=== PATIENT | female | born 1955 | race Hispanic/Latino ===

== ENCOUNTER 2017-08-23 10:40 | Day surgery (SDC) | payer BC ==
[~2017-08-23] VITALS: Ht 162.6 cm; Wt 102.1 kg
[~2017-08-23 10:40] MED LIST: ANAPROX DS550 MG OR; FLEXERIL10 MG OR; HYDROCO/APAP1 TA9 OR; HYZAAR1 TA1 PO; LOVENOX 4040 MG/0.4 SC; NO HOME MEDS; ULTRAM50 MG OR
[2017-08-23 14:59] VITALS: BP 123/88
== END 2017-08-23 15:10 | disposition home or self-care (01) | DRG 392 ==
LOC: ENDO 10:40
PROVIDERS: ATTEND Internal Medicine Gastroenterology
PROC: 0DBK8ZX Excision of Ascending Colon, Via Natural or Artificial Opening Endoscopic, Diagnostic (ICD-10-PCS; principal; 2017-08-23)
DX: R19.5 Other fecal abnormalities (principal); K64.4 Residual hemorrhoidal skin tags; K63.5 Polyp of colon; K57.30 Diverticulosis of large intestine without perforation or abscess without bleeding; K64.8 Other hemorrhoids; I10 Essential (primary) hypertension

== ENCOUNTER 2017-10-18 06:06 | Day surgery (SDC) | payer BC ==
[~2017-10-18] VITALS: Ht 162.6 cm; Wt 102.1 kg
[2017-10-18 08:40] VITALS: BP 113/66
== END 2017-10-18 08:58 | disposition home or self-care (01) | DRG 379 ==
LOC: ENDO 06:06
PROVIDERS: ATTEND Internal Medicine Gastroenterology
PROC: 0DB48ZX Excision of Esophagogastric Junction, Via Natural or Artificial Opening Endoscopic, Diagnostic (ICD-10-PCS; principal; 2017-10-18)
PROC: 0DB78ZX Excision of Stomach, Pylorus, Via Natural or Artificial Opening Endoscopic, Diagnostic (ICD-10-PCS; 2017-10-18)
DX: K29.51 Unspecified chronic gastritis with bleeding (principal); B18.2 Chronic viral hepatitis C; K44.9 Diaphragmatic hernia without obstruction or gangrene; K20.9 Esophagitis, unspecified; I10 Essential (primary) hypertension; R94.5 Abnormal results of liver function studies; K57.90 Diverticulosis of intestine, part unspecified, without perforation or abscess without bleeding; Z86.010 Personal history of colon polyps

== ENCOUNTER 2019-01-10 10:31 | Emergency (ER) | payer BC ==
[~2019-01-10] VITALS: Ht 162.6 cm; Wt 99.0 kg
[2019-01-10 12:36] LABS: URINE BILIRUBIN - DIPSTICK NEGATIVE (NEGATIVE); URINE BLOOD DIPSTICK MODERATE (NEGATIVE); URINE COLOR YELLOW; URINE GLUCOSE - DIPSTICK NEGATIVE (NEGATIVE); URINE KETONE NEGATIVE (NEGATIVE); URINE LEUK ESTERASE NEGATIVE (NEGATIVE); URINE NITRITE - DIPSTICK NEGATIVE (Negative); URINE PH 5.5 (4.5-8.0); URINE PROTEIN - DIPSTICK NEGATIVE (NEG-TRACE); URINE SPECIFIC GRAVITY >=1.030; URINE UROBILINOGEN - DIPSTICK 0.2 E.U./dL (0.2)
[2019-01-10 12:50] LABS: HEMATOCRIT 41.1 % (37.0-47.0); HEMOGLOBIN 13.4 g/dl (12.0-16.0); IMMATURE GRANULOCYTES 0.4 % (0.0-5.0); MEAN CELL VOLUME 91.5 fL CALC (80.0-100.0); MEAN CORPUSCULAR HGB 29.8 pG CALC (26.0-32.0); MEAN CORPUSCULAR HGB CONC 32.6 g/L CALC (32.0-36.0); NEUT# 3.37 thou/uL (2.00-7.15); RED BLOOD COUNT 4.49 mill/uL (4.20-5.60); RED CELL DISTRI WIDTH 13.4 % (11.5-15.5)
[2019-01-10 13:00] LABS: ALBUMIN 4.7 g/dL (3.2-5.0); ALKALINE PHOSPHATASE 55 u/l (38-126); ANION GAP 17 (6-22 (CALC)); BUN 22 mg/dL (8-23); BUN/CREATININE RATIO 27 (12-20 (CALC)); CARBON DIOXIDE 25 mmol/l (22-30); CHLORIDE 102 mmol/l (95-108); CREATININE 0.8 mg/dL (0.5-1.0); GFR > 60 ML/MIN (>=60 (CALC)); GFR FOR AFR.AMER. > 60 ML/MIN (>=60 (CALC)); POTASSIUM 4.1 mmol/l (3.5-5.1); SODIUM 140 mmol/l (137-146); TOTAL PROTEIN 8.5 g/dL (6.3-8.2)
[2019-01-10 13:06] LABS: SGOT/AST 58 u/l (9-36)
[2019-01-10 13:12] LABS: MYOGLOBIN 89 ng/mL (0 - 62)
[2019-01-10 16:01] VITALS: BP 111/55
[2019-01-10] MEDS ORDERED: CIPROFLOXACN500 MG PO (16:13)
== END 2019-01-10 16:28 | disposition home or self-care (01) | DRG 313 ==
LOC: ED 10:31
PROVIDERS: Emergency Medicine
DX: R07.89 Other chest pain (principal); N39.0 Urinary tract infection, site not specified; I10 Essential (primary) hypertension; M19.90 Unspecified osteoarthritis, unspecified site

== ENCOUNTER 2020-08-22 12:03 | Emergency (ER) | payer MEDICARE, MEDICAID ==
[~2020-08-22] VITALS: Ht 162.6 cm; Wt 85.0 kg
[~2020-08-22 12:03] MED LIST changes: +CIPROFLOXACN500 MG PO
[2020-08-22 12:17] VITALS: BP 161/84
[2020-08-22] MEDS ORDERED: BACLOFEN20 MG PO (12:33)
[2020-08-22 12:58] LABS: HEMATOCRIT 43.4 % (37.0-47.0); HEMOGLOBIN 14.1 g/dl (12.0-16.0); IMMATURE GRANULOCYTES 0.4 % (0.0-5.0); MEAN CELL VOLUME 91.2 fL CALC (80.0-100.0); MEAN CORPUSCULAR HGB 29.6 pG CALC (26.0-32.0); MEAN CORPUSCULAR HGB CONC 32.5 g/dL CAL (32.0-36.0); NEUT# 5.82 thou/uL (2.00-7.15); RED BLOOD COUNT 4.76 mill/uL (4.20-5.60); RED CELL DISTRI WIDTH 13.2 % (11.5-15.5)
[2020-08-22 13:09] LABS: ANION GAP 12 (6-22 (CALC)); BUN 17 mg/dL (8-23); BUN/CREATININE RATIO 25 (12-20 (CALC)); CARBON DIOXIDE 28 mmol/l (22-30); CHLORIDE 103 mmol/l (95-108); CREATININE 0.7 mg/dL (0.5-1.0); GFR > 60 ML/MIN (>=60 (CALC)); GFR FOR AFR.AMER. > 60 ML/MIN (>=60 (CALC)); POTASSIUM 4.1 mmol/l (3.5-5.1); SODIUM 139 mmol/l (137-146)
== END 2020-08-22 13:50 | disposition home or self-care (01) ==
LOC: ED 12:03
PROVIDERS: Family Medicine
DX: R40.0 Somnolence (principal); T42.8X5A Adverse effect of antiparkinsonism drugs and other central muscle-tone depressants, initial encounter; I10 Essential (primary) hypertension

== ENCOUNTER 2022-02-26 16:00 | Emergency (ER) | payer MEDICARE, MEDICAID ==
[~2022-02-26] VITALS: Ht 162.6 cm; Wt 111.3 kg
[2022-02-26] VITALS (7 sets, daily range): BP systolic 102–141; BP diastolic 69–90
[~2022-02-26 16:00] MED LIST changes: +BACLOFEN20 MG PO
[2022-02-26 17:19] LABS: HEMATOCRIT 48.9 % (37.0-47.0); HEMOGLOBIN 15.3 g/dl (12.0-16.0); IMMATURE GRANULOCYTES 0.3 % (0.0-5.0); MEAN CORPUSCULAR HGB 29.4 pG CALC (26.0-32.0); MEAN CORPUSCULAR HGB CONC 31.3 g/dL CAL (32.0-36.0); NEUT# 9.89 thou/uL (2.00-7.15); RED BLOOD COUNT 5.2 mill/uL (4.20-5.60); RED CELL DISTRI WIDTH 13.8 % (11.5-15.5)
[2022-02-26 17:29] LABS: ALBUMIN 4.8 g/dL (3.2-5.0); ALKALINE PHOSPHATASE 68 u/l (38-126); AMYLASE 105 u/l (30-110); ANION GAP 17 (6-22 (CALC)); BILIRUBIN, TOTAL 0.9 mg/dL (0.0-1.4); BUN 19 mg/dL (8-23); BUN/CREATININE RATIO 23 (12-20 (CALC)); CARBON DIOXIDE 25 mmol/l (22-30); CHLORIDE 102 mmol/l (95-108); CREATININE 0.9 mg/dL (0.5-1.0); GFR > 60 ML/MIN (>=60 (CALC)); GFR FOR AFR.AMER. > 60 ML/MIN (>=60 (CALC)); POTASSIUM 3.9 mmol/l (3.5-5.1); SGOT/AST 52 u/l (9-36); SODIUM 140 mmol/l (137-146)
[2022-02-26] MEDS ORDERED: ONDANSETRON4 MG PO (18:48)
[2022-02-26] MEDS ORDERED: BACTRIM DS1 TAB PO (18:48)
[2022-02-26 19:49] LABS: URINE BILIRUBIN - DIPSTICK NEGATIVE (NEGATIVE); URINE BLOOD DIPSTICK MODERATE (NEGATIVE); URINE COLOR YELLOW; URINE GLUCOSE - DIPSTICK NEGATIVE (NEGATIVE); URINE KETONE TRACE mg/dL (NEGATIVE); URINE LEUK ESTERASE TRACE (NEGATIVE); URINE PROTEIN - DIPSTICK NEGATIVE (NEG-TRACE); URINE SPECIFIC GRAVITY >=1.030; URINE UROBILINOGEN - DIPSTICK 0.2 E.U./dL (0.2)
[2022-02-26 19:53] LABS: URINE NITRITE - DIPSTICK NEGATIVE (Negative)
[2022-02-26 19:54] LABS: URINE MUCUS FEW hpf (NONE-FEW); URINE SQUAMOUS EPITHELIAL CELL FEW EPI/hpf (0-FEW); URINE WBC 0-2 WBC/hpf (0-5)
== END 2022-02-26 20:43 | disposition home or self-care (01) ==
LOC: ED 16:00
PROVIDERS: Emergency Medicine
DX: K52.9 Noninfective gastroenteritis and colitis, unspecified (principal)

== ENCOUNTER 2023-03-17 09:14 | Emergency (ER) | payer MEDICARE, MEDICAID ==
[~2023-03-17] VITALS: Ht 162.6 cm; Wt 97.0 kg
[~2023-03-17 09:14] MED LIST changes: +BACTRIM DS1 TAB PO; +ONDANSETRON4 MG PO
[2023-03-17 09:25] VITALS: BP 150/84
[2023-03-17 09:31] VITALS: BP 137/75
[2023-03-17] MEDS ORDERED: IBUPROFEN600 MG PO (10:15)
[2023-03-17] MEDS ORDERED: VOLTAREN1%GEL TOP (10:15)
[2023-03-17 10:29] VITALS: BP 137/75
== END 2023-03-17 10:49 | disposition home or self-care (01) ==
LOC: ED 09:14
DX: M25.561 Pain in right knee (principal); I10 Essential (primary) hypertension; E66.01 Morbid (severe) obesity due to excess calories

== ENCOUNTER 2023-11-08 12:45 | Emergency (ER) | payer MEDICARE, MEDICAID ==
[2023-11-08] VITALS (8 sets, daily range): BP systolic 119–160; BP diastolic 56–135
[~2023-11-08] VITALS: Ht 162.6 cm; Wt 114.0 kg
[~2023-11-08 12:45] MED LIST changes: +IBUPROFEN600 MG PO; +VOLTAREN1%GEL TOP
[2023-11-08 14:42] LABS: URINE BILIRUBIN - DIPSTICK Negative (NEGATIVE); URINE BLOOD DIPSTICK Trace-intact (NEGATIVE); URINE GLUCOSE - DIPSTICK Negative (NEGATIVE); URINE KETONE 15 mg/dL (NEGATIVE); URINE LEUK ESTERASE Negative (NEGATIVE); URINE NITRITE - DIPSTICK Negative (Negative); URINE PH 6.5 (4.5-8.0); URINE PROTEIN - DIPSTICK Negative (NEG-TRACE); URINE SPECIFIC GRAVITY 1.025
[2023-11-08 14:48] LABS: URINE COLOR Yellow
[2023-11-08] MEDS ORDERED: DICLOFENAC75 MG PO (16:03)
[2023-11-08] MEDS ORDERED: METHOCARBAMOL500 MG PO (16:03)
== END 2023-11-08 16:12 | disposition home or self-care (01) ==
LOC: ED 12:45
PROVIDERS: Nurse Practitioner
DX: S09.90XA Unspecified injury of head, initial encounter (principal); M25.512 Pain in left shoulder; M25.511 Pain in right shoulder; M54.50 Low back pain, unspecified; M54.2 Cervicalgia; I10 Essential (primary) hypertension; E11.9 Type 2 diabetes mellitus without complications; W18.2XXA Fall in (into) shower or empty bathtub, initial encounter; Y93.E1 Activity, personal bathing and showering; Y92.002 Bathroom of unspecified non-institutional (private) residence as the place of occurrence of the external cause